=== PATIENT | male | born 1980 | race Two or more races ===

== ENCOUNTER 2023-03-03 18:36 | Inpatient (IN) | payer MEDICAID, OTHER ==
[~2023-03-03] VITALS: Ht 160 cm; Wt 87.7 kg
[2023-03-03] MEDS ORDERED: hydrALAZINE HCL 20 MG/ML VL IV ONE ×2 (19:00→22:00)
[2023-03-03 19:21] LABS: Basophils # (auto) 0.1 10 ^3/uL (0-0.2); Basophils % (auto) 1.2 % (0.0-2.0); Eosinophils # (auto) 0.1 10 ^3/uL (0-0.8); Eosinophils % (auto) 0.6 % (0.0-7.0); Hematocrit 46.5 % (41.0-53.0); Hemoglobin 15.6 g/dL (13.5-17.5); Lymphocytes % (auto) 26.8 % (10.0-50.0); Mean Corpuscular Hemoglobin 31.5 pg (28.0-32.0); Mean Corpuscular Hgb Conc. 33.6 g/dL (32.0-36.0); Mean Corpuscular Volume 93.6 fL (80.0-100.0); Monocytes # (auto) 1.2 10 ^3/uL (0-1.3); Monocytes % (auto) 10.6 % (0.0-12.0); Neutrophils # (auto) 6.7 10 ^3/uL (1.6-8.6); Neutrophils % (auto) 60.8 % (37.0-80.0); Red Blood Cells 4.97 10^6/uL (4.5-5.90); Red Cell Distribution Width 14.7 % (11.8-14.3)
[2023-03-03 19:35] LABS: INR 0.98 (0.9-1.15); Partial Thromboplastin Time 26.5 SEC (24.5-34.5); Prothrombin Time 10.3 sec (9.3-11.8)
[2023-03-03 19:38] LABS: Alanine Aminotransferase 44 U/L (7-40); Albumin 4.3 g/dL (3.2-4.8); Alkaline Phosphatase 100 U/L (46-116); Anion Gap 9 (5-15); Aspartate Aminotransferase 34 U/L (13-40); BUN/Creatinine Ratio 17.4 (10.0-20.0); Blood Urea Nitrogen 12 mg/dL (9-23); Calcium 9.8 mg/dL (8.5-10.1); Carbon Dioxide 26 mmol/L (20-30); Chloride 102 mmol/L (98-107); Glucose 142 mg/dL (74-106); Potassium 3.6 mmol/L (3.5-5.1); Sodium 137 mmol/L (136-145)
[2023-03-03 19:39] LABS: Bilirubin, Total 0.3 mg/dL (0.2-1.0); Total Protein 6.8 g/dL (5.7-8.2)
[2023-03-03 19:45] VITALS: PULSE 90; RESP 16; O2SAT 97
[2023-03-03 20:08] LABS: Magnesium 1.8 mg/dL (1.6-2.6)
[2023-03-03] MEDS ORDERED: MORPHINE SULFATE 4 MG/ML SYR/VIAL IV ONE (23:45)
[2023-03-03] MEDS ORDERED: ONDANSETRON HCL 4 MG/2 ML VIAL IV ONE (23:45)
[2023-03-03] MEDS ORDERED: amLODIPine BESYLATE 5 MG TAB PO ONE (23:45)
[2023-03-04 00:01] LABS: Urine Bacteria NONE SEEN /hpf (None Seen); Urine Blood Negative /uL (Negative); Urine Clarity Clear (Clear); Urine Color Colorless (Yellow); Urine Protein, UAD Negative (Negative); Urine Specific Gravity 1.017 (1.001-1.035); Urine Urobilinogen Normal (Negative); Urine WBC 1 /hpf (0 - 3); Urine pH 6.5 (5.0-8.0)
[2023-03-04] MEDS ORDERED: ZOFR4T PO (01:06)
[2023-03-04] MEDS ORDERED: METF-929 PO (01:06)
[2023-03-04] MEDS ORDERED: LOSA25TA5 PO (01:06)
[2023-03-04] MEDS ORDERED: IBUP1TAB5 PO (01:06)
[2023-03-04] MEDS ORDERED: ONDANSETRON HCL 4 MG/2 ML VIAL IV PRN (05:15)
[2023-03-04] MEDS ORDERED: DEXTROSE (50%) 50ML SYRG IV PRN (05:15)
[2023-03-04] MEDS ORDERED: hydrALAZINE HCL 20 MG/ML VL IV PRN (05:15)
[2023-03-04] MEDS ORDERED: MORPHINE SULFATE INJ 2 MG/ml SYRG IV PRN (05:15)
[2023-03-04] MEDS ORDERED: TEMAZEPAM 15 MG CAP PO PRN (05:15)
[2023-03-04] MEDS ORDERED: NITROGLYCERIN 0.4 MG SL TAB SL PRN (05:15)
[2023-03-04] MEDS: ACCU-CHEK COMFORT CURVE STRIP VI SCH ×4 (07:03→21:19)
[2023-03-04] MEDS: InsuLIN REG 1unit/0.01ml Soln (100units/ml) SC SCH ×4 (07:03→21:20)
[2023-03-04 08:26] VITALS: PULSE 85; RESP 18; O2SAT 97
[2023-03-04] MEDS: LOSARTAN POTASSIUM 50 MG TAB PO SCH (08:38)
[2023-03-04 09:20] VITALS: BP 155/106; PULSE 91; RESP 20; TEMP 98.4; O2SAT 95
[2023-03-04] MEDS ORDERED: METOPROLOL TARTRATE 25 MG TAB PO SCH (10:00)
[2023-03-04] MEDS ORDERED: amLODIPine BESYLATE 5 MG TAB PO ONE (11:00)
[2023-03-04 12:58] VITALS: BP 135/88; PULSE 79; RESP 20; TEMP 98.7; O2SAT 95
[2023-03-04 17:08] VITALS: BP 136/91; PULSE 85; RESP 20; TEMP 98.9; O2SAT 96
[2023-03-04] MEDS: metFORMIN HYDROCHLORIDE 500 MG TAB PO SCH ×2 (17:55→18:03)
[2023-03-04 20:00] VITALS: PULSE 82; RESP 22; O2SAT 96
[2023-03-04 22:00] VITALS: BP_SYST 117; BP_SYST 146; BP_DIAS 69; BP_DIAS 89; PULSE 100; PULSE 82; RESP 22; TEMP 97.9; TEMP 98.9; O2SAT 94; O2SAT 96
[2023-03-05 05:00] VITALS: BP 133/89; PULSE 81; RESP 22; TEMP 97.5; O2SAT 93
[2023-03-05 05:30] LABS: Basophils # (auto) 0.1 10 ^3/uL (0-0.2); Eosinophils # (auto) 0.2 10 ^3/uL (0-0.8); Eosinophils % (auto) 2.7 % (0.0-7.0); Hemoglobin 16.1 g/dL (13.5-17.5); Lymphocytes # (auto) 2.4 10 ^3/uL (0.4-5.4); Lymphocytes % (auto) 30.3 % (10.0-50.0); Mean Corpuscular Hgb Conc. 33.6 g/dL (32.0-36.0); Mean Corpuscular Volume 95.3 fL (80.0-100.0); Monocytes # (auto) 0.9 10 ^3/uL (0-1.3); Neutrophils # (auto) 4.3 10 ^3/uL (1.6-8.6); Nucleated Red Blood Cells % 0.1 %; Red Blood Cells 5.03 10^6/uL (4.5-5.90); Red Cell Distribution Width 14.7 % (11.8-14.3); White Blood Cell 7.9 10^3/uL (4.4-10.8)
[2023-03-05 05:44] LABS: Chloride 104 mmol/L (98-107)
[2023-03-05 05:45] LABS: Anion Gap 10 (5-15); Carbon Dioxide 24 mmol/L (20-30); Potassium 3.7 mmol/L (3.5-5.1); Sodium 138 mmol/L (136-145)
[2023-03-05 05:46] LABS: Calcium 9.5 mg/dL (8.5-10.1)
[2023-03-05 05:50] LABS: Glucose 133 mg/dL (74-106)
[2023-03-05 05:51] LABS: BUN/Creatinine Ratio 14.1 (10.0-20.0); Blood Urea Nitrogen 10 mg/dL (9-23); LDL Cholesterol 152 mg/dL (< 100); Triglycerides 166 mg/dL (< 150)
[2023-03-05 05:52] LABS: Cholesterol 208 mg/dL (< 200); HDL Cholesterol 50 mg/dL (40-59)
[2023-03-05] MEDS: ACCU-CHEK COMFORT CURVE STRIP VI SCH ×2 (06:31→11:30)
[2023-03-05] MEDS: InsuLIN REG 1unit/0.01ml Soln (100units/ml) SC SCH ×2 (06:32→11:30)
[2023-03-05 08:25] VITALS: BP 136/85; PULSE 84; RESP 19; TEMP 98.6; O2SAT 96
[2023-03-05] MEDS ORDERED: LOSA50TA46 PO (09:58)
[2023-03-05] MEDS ORDERED: METF-370 PO (09:58)
[2023-03-05] MEDS ORDERED: amLODIPine BESYLATE 5 MG TAB PO SCH (10:00)
[2023-03-05] MEDS: metFORMIN HYDROCHLORIDE 500 MG TAB PO SCH (10:06)
[2023-03-05] MEDS: LOSARTAN POTASSIUM 50 MG TAB PO SCH (10:07)
[2023-03-05 10:26] LABS: Hepatitis B Core Total AB Negative (Negative)
[2023-03-05 12:20] VITALS: BP_SYST 140; BP_SYST 97; BP_DIAS 105; BP_DIAS 60; PULSE 93; PULSE 98; RESP 18; RESP 20; TEMP 98.6; TEMP 98.8; O2SAT 94; O2SAT 97
[2023-03-05 14:58] LABS: Hepatitis A Total Antibody Positive (Negative); Hepatitis B Surface Antibody Negative (Negative); Hepatitis B Surface Antigen Negative (Negative); Hepatitis C Antibody Negative (Negative)
[2023-03-05 16:30] VITALS: BP_SYST 124; BP_SYST 92; BP_DIAS 64; BP_DIAS 85; PULSE 96; PULSE 97; RESP 18; RESP 20; TEMP 98.3; TEMP 99.2; O2SAT 95; O2SAT 96
== END 2023-03-05 17:40 | disposition home or self-care (01) | DRG 199 ==
LOC: ER 18:36 → TELE 03-04 05:02 → TELE-WESTW 03-04 08:23 → WEST WING 03-04 14:28
PROVIDERS: ADMIT Nurse Practitioner; ATTEND Internal Medicine
DX: I16.0 Hypertensive urgency (principal); E11.65 Type 2 diabetes mellitus with hyperglycemia; E66.9 Obesity, unspecified; Z68.34 Body mass index [BMI] 34.0-34.9, adult; H53.8 Other visual disturbances; I10 Essential (primary) hypertension; Z79.899 Other long term (current) drug therapy; Z91.199 Patient's noncompliance with other medical treatment and regimen due to unspecified reason; Z79.84 Long term (current) use of oral hypoglycemic drugs
CPT/HCPCS: 36415; 70450; 71045; 80048; 80053; 80061; 81001; 82962; 83036; 83735; 83880; 84484; 85025; 85610; 85730; 86704; 86706; 86708; 86803; 87340; 93005; 96374; 96376; G0378; J1815; J2405

== ENCOUNTER 2023-06-17 20:59 | Inpatient (IN) | payer MEDICAID ==
[~2023-06-17] VITALS: Ht 160 cm; Wt 94.0 kg
[~2023-06-17 20:59] MED LIST: LOSA25TA5 PO; LOSA50TA46 PO; METF-370 PO; METF-929 PO
[2023-06-17 21:46] LABS: Basophils # (auto) 0.1 10 ^3/uL (0-0.2); Basophils % (auto) 0.7 % (0.0-2.0); Eosinophils # (auto) 0 10 ^3/uL (0-0.8); Hematocrit 48.1 % (41.0-53.0); Hemoglobin 15.9 g/dL (13.5-17.5); Lymphocytes # (auto) 3.5 10 ^3/uL (0.4-5.4); Lymphocytes % (auto) 25.7 % (10.0-50.0); Mean Corpuscular Hemoglobin 30.6 pg (28.0-32.0); Mean Corpuscular Hgb Conc. 33.2 g/dL (32.0-36.0); Mean Corpuscular Volume 92.2 fL (80.0-100.0); Monocytes % (auto) 7.1 % (0.0-12.0); Neutrophils # (auto) 9.1 10 ^3/uL (1.6-8.6); Neutrophils % (auto) 66.5 % (37.0-80.0); Nucleated Red Blood Cells % 0.1 %; Red Blood Cells 5.22 10^6/uL (4.5-5.90); Red Cell Distribution Width 14.5 % (11.8-14.3); White Blood Cell 13.8 10^3/uL (4.4-10.8)
[2023-06-17 21:56] LABS: Alanine Aminotransferase 34 U/L (7-40); Albumin 4.8 g/dL (3.2-4.8); Alkaline Phosphatase 94 U/L (46-116); Anion Gap 15 (5-15); Aspartate Aminotransferase 27 U/L (13-40); BUN/Creatinine Ratio 5.3 (10.0-20.0); Bilirubin, Total 0.3 mg/dL (0.2-1.0); Blood Urea Nitrogen 7 mg/dL (9-23); Carbon Dioxide 21 mmol/L (20-30); Chloride 95 mmol/L (98-107); Glucose 246 mg/dL (74-106); Lipase 48 U/L (12-53); Potassium 3.8 mmol/L (3.5-5.1); Sodium 131 mmol/L (136-145); Total Protein 7.9 g/dL (5.7-8.2)
[2023-06-17] MEDS: LORazepam 2MG/ML-1ML VIAL IV ONE (21:57)
[2023-06-17 22:02] LABS: Lactic Acid w/Reflex 3.5 mmol/L (0.4-2.0)
[2023-06-17] MEDS: FOLIC ACID 1 MG, MAGNESIUM SULF SDV 50% 8 MEQ, MULTIPLE VITAMIN 10 ML, THIAMINE INJ 100... INJ STA (22:19)
[2023-06-17] MEDS: ACETAMINOPHEN 500 MG TAB PO ONE (23:21)
[2023-06-17] MEDS ORDERED: DEXTROSE (50%) 50ML SYRG IV PRN (23:45)
[2023-06-17] MEDS ORDERED: TEMAZEPAM 15 MG CAP PO PRN (23:45)
[2023-06-18] VITALS (9 sets, daily range): BP systolic 145–178; BP diastolic 97–113; PULSE 86–105; RESP 18–20; TEMP 97.3–98.4; O2SAT 92–99
[2023-06-18] MEDS: ACCU-CHEK COMFORT CURVE STRIP VI SCH ×2 (00:26→16:52)
[2023-06-18] MEDS: InsuLIN REG 1unit/0.01ml Soln (100units/ml) SC SCH ×2 (00:33→16:53)
[2023-06-18] MEDS: AZITHROMYCIN 500MG/ 250ML 250 ML IV ONE (01:15)
[2023-06-18 05:46] LABS: Chloride 101 mmol/L (98-107); Potassium 3.5 mmol/L (3.5-5.1); Sodium 135 mmol/L (136-145)
[2023-06-18 05:47] LABS: Anion Gap 6 (5-15); Calcium 8.6 mg/dL (8.5-10.1); Carbon Dioxide 28 mmol/L (20-30)
[2023-06-18 05:52] LABS: BUN/Creatinine Ratio 7.4 (10.0-20.0); Blood Urea Nitrogen 9 mg/dL (9-23); Glucose 280 mg/dL (74-106)
[2023-06-18] MEDS: chlordiazePOXIDE HCL 25 MG CAP PO PRN (09:53)
[2023-06-18] MEDS: LOSARTAN POTASSIUM 50 MG TAB PO SCH (09:54)
[2023-06-18] MEDS: cefTRIAXone 1GM/50ML D5W 50 ML IV ONE (11:22)
[2023-06-18] MEDS ORDERED: LORazepam 2MG/ML-1ML VIAL IV PRN (12:15)
[2023-06-18] MEDS: SODIUM CHLORIDE 0.9% 1,000 ML IV SCH (14:46)
[2023-06-18] MEDS ORDERED: FOLIC ACID 1 MG, MAGNESIUM SULF SDV 50% 8 MEQ, MULTIPLE VITAMIN 10 ML, THIAMINE INJ 100... INJ SCH (18:00)
[2023-06-18] MEDS: FOLIC ACID 1 MG, MAGNESIUM SULF SDV 50% 8 MEQ, MULTIPLE VITAMIN 10 ML, THIAMINE INJ 100... INJ SCH (18:05)
[2023-06-18] MEDS: AZITHROMYCIN 500MG/ 250ML 250 ML IV SCH (21:45)
[2023-06-18] MEDS: cloNIDine HCL 0.1 MG TAB PO PRN (21:52)
[2023-06-19] VITALS (9 sets, daily range): BP systolic 143–178; BP diastolic 92–119; PULSE 67–92; RESP 16–21; TEMP 97.5–98.2; O2SAT 92–95
[2023-06-19 06:58] LABS: Basophils # (auto) 0.1 10 ^3/uL (0-0.2); Eosinophils # (auto) 0.2 10 ^3/uL (0-0.8); Eosinophils % (auto) 2.6 % (0.0-7.0); Hematocrit 42.3 % (41.0-53.0); Hemoglobin 14.4 g/dL (13.5-17.5); Lymphocytes # (auto) 2.3 10 ^3/uL (0.4-5.4); Lymphocytes % (auto) 33.1 % (10.0-50.0); Mean Corpuscular Hemoglobin 31.3 pg (28.0-32.0); Mean Corpuscular Hgb Conc. 34.1 g/dL (32.0-36.0); Mean Corpuscular Volume 91.8 fL (80.0-100.0); Monocytes # (auto) 0.8 10 ^3/uL (0-1.3); Monocytes % (auto) 10.9 % (0.0-12.0); Neutrophils # (auto) 3.7 10 ^3/uL (1.6-8.6); Neutrophils % (auto) 52.4 % (37.0-80.0); Nucleated Red Blood Cells % 0.1 %; Red Blood Cells 4.61 10^6/uL (4.5-5.90); Red Cell Distribution Width 13.8 % (11.8-14.3)
[2023-06-19 07:19] LABS: Alanine Aminotransferase 22 U/L (7-40); Albumin 3.7 g/dL (3.2-4.8); Alkaline Phosphatase 61 U/L (46-116); Anion Gap 7 (5-15); Aspartate Aminotransferase 15 U/L (13-40); BUN/Creatinine Ratio 9.9 (10.0-20.0); Blood Urea Nitrogen 8 mg/dL (9-23); Calcium 8.6 mg/dL (8.7-10.4); Carbon Dioxide 25 mmol/L (20-30); Chloride 105 mmol/L (98-107); Magnesium 2.2 mg/dL (1.6-2.6); Potassium 3.5 mmol/L (3.5-5.1); Sodium 137 mmol/L (136-145)
[2023-06-19 07:20] LABS: Bilirubin, Total 0.4 mg/dL (0.2-1.0); Total Protein 5.9 g/dL (5.7-8.2)
[2023-06-19 07:26] LABS: Glucose 166 mg/dL (74-106)
[2023-06-19] MEDS: chlordiazePOXIDE HCL 25 MG CAP PO PRN (09:15)
[2023-06-19] MEDS: cefTRIAXone 1GM/50ML D5W 50 ML IV SCH (09:16)
[2023-06-20] VITALS (8 sets, daily range): BP systolic 129–182; BP diastolic 72–116; PULSE 63–79; RESP 16–21; TEMP 97.8–98.1; O2SAT 94–95
[2023-06-20 14:11] LABS: Chloride 101 mmol/L (98-107); Potassium 4.6 mmol/L (3.5-5.1); Sodium 135 mmol/L (136-145)
[2023-06-20 14:12] LABS: Anion Gap 6 (5-15); Calcium 9.4 mg/dL (8.7-10.4); Carbon Dioxide 28 mmol/L (20-30)
[2023-06-20 14:17] LABS: BUN/Creatinine Ratio 9.8 (10.0-20.0); Blood Urea Nitrogen 8 mg/dL (9-23); Glucose 249 mg/dL (74-106)
[2023-06-20] MEDS ORDERED: AZITTAB PO (15:06)
== END 2023-06-20 17:55 | disposition home or self-care (01) | DRG 137 ==
LOC: ER 20:59 → OVERFLOW 23:49 → CENTRAL 23:49
PROVIDERS: ADMIT Nurse Practitioner; ATTEND Internal Medicine
DX: J15.69 Pneumonia due to other Gram-negative bacteria (principal); N17.0 Acute kidney failure with tubular necrosis; E11.9 Type 2 diabetes mellitus without complications; F10.239 Alcohol dependence with withdrawal, unspecified; I10 Essential (primary) hypertension; Z91.148 Patient's other noncompliance with medication regimen for other reason; J15.9 Unspecified bacterial pneumonia
CPT/HCPCS: 36415; 71045; 80048; 80053; 80320; 82962; 83605; 83690; 83735; 83880; 84484; 85025; 87040; 93005; 96365; 96375; G0378; J1815